=== PATIENT | female | born 1975 | race African-American/Black ===

== ENCOUNTER 2017-06-09 21:51 | Emergency (ER) | payer BC ==
[~2017-06-09] VITALS: Ht 165.1 cm; Wt 82.0 kg
[2017-06-09 22:24] VITALS: BP 118/82
== END 2017-06-10 05:02 | disposition left against medical advice (07) ==
LOC: ER 22:57
DX: Z53.21 Procedure and treatment not carried out due to patient leaving prior to being seen by health care provider (principal)

== ENCOUNTER 2019-06-08 09:22 | Emergency (ER) | payer BC ==
[~2019-06-08] VITALS: Ht 165.1 cm; Wt 87.0 kg
[2019-06-08] MEDS ORDERED: SUMATRIPTAN SUCCINATE 25MG TABLET PO ONE (11:00)
[2019-06-08] MEDS ORDERED: KETOROLAC 60MG/2ML VIAL IM ONE (11:00)
[2019-06-08] MEDS ORDERED: HYDROCODONE/ACETAMINOPHEN 5/325MG TABLET PO ONE (13:30)
[2019-06-08 13:38] VITALS: BP 108/74
== END 2019-06-08 14:22 | disposition home or self-care (01) ==
LOC: ER 09:22
DX: R51 Headache (principal); M54.12 Radiculopathy, cervical region
CPT/HCPCS: 81025; 96372; 99283; J1885